=== PATIENT | female | born 1945 | race Caucasian/White ===

== ENCOUNTER 2022-02-01 06:30 | Emergency (ER) | payer MEDICARE, OTHER ==
[~2022-02-01] VITALS: Ht 168.9 cm; Wt 86.4 kg
[2022-02-01 07:38] VITALS: BP 169/88
--- NOTE | 2022-02-01 07:40 | NUR ---
Spoke with Dr Chino who stated not to swab pt for covid at this time.
== END 2022-02-01 07:40 | disposition home or self-care (01) ==
LOC: ER 06:31
DX: U07.1 COVID-19 (principal); R50.9 Fever, unspecified; R06.02 Shortness of breath
CPT/HCPCS: 71045; 99283